=== PATIENT | male | born 1960 | race Caucasian/White ===

== ENCOUNTER 2016-02-21 19:16 | Emergency (ER) | payer OTHER ==
[2016-02-21 20:58] VITALS: BP 133/76
[2016-02-21] MEDS ORDERED: Azithromycin TAB* 250 MG PO ONE (21:24)
--- NOTE | 2016-02-21 21:43 | UC ---
Respiratory Complaint HPI - HPI Summary HPI Summary: worsening cough over the past 2-3 weeks - History of Current Complaint Chief Complaint: UCGeneralIllness Stated Complaint: COUGH, CHEST CONGESTION Time Seen by Provider: 02/21/16 21:10 Hx Obtained From: Patient Onset/Duration: Gradual Onset, Lasting Weeks - 3, Still Present Timing: Constant Pain Intensity: 0 Pain Scale Used: 0-10 Numeric Character: Cough: Nonproductive Aggravating Factors: Nothing Alleviating Factors: Nothing Associated Signs And Symptoms: Positive: Pleuritic Chest Pain, URI - Allergies/Home Medications Allergies/Adverse Reactions: Allergies Allergy/AdvReac Type Severity Reaction Status Date / Time No Known Allergies Allergy Verified 02/21/16 20:50 Home Medications: Home Medications Albuterol HFA INHALER* [Ventolin HFA Inhaler*] 02/21/16 [History] Fluticasone Furoate (Inhalatio [Arnuity Ellipta] 1 puff 02/21/16 [History] PMH/Surg Hx/FS Hx/Imm Hx Previously Healthy: No Endocrine History Of: Denies: Diabetes Cardiovascular History Of: Reports: Hypertension Denies: Myocardial Infarction Respiratory History Of: Reports: Asthma Denies: COPD - Surgical History Surgical History: Yes Surgery Procedure, Year, and Place: Cardiac cath. Left knee - Family History Known Family History: Positive: None Family History: denies cardio vascular events in lineage - Social History Occupation: Employed Full-time Lives: With Family Alcohol Use: Occasionally Alcohol Amount: one beer daily Substance Use Type: None Smoking Status (MU): Never Smoked Tobacco Have You Smoked in the Last Year: No Review of Systems Constitutional: Negative Skin: Negative Eyes: Negative ENT: Negative Respiratory: Cough Cardiovascular: Negative Gastrointestinal: Negative Genitourinary: Negative Motor: Negative Neurovascular: Negative Musculoskeletal: Negative Neurological: Negative Psychological: Negative All Other Systems Reviewed And Are Negative: Yes Physical Exam Triage Information Reviewed: Yes Appearance: Well-Appearing, No Pain Distress, Well-Nourished Vital Signs: Initial Vital Signs Temp 98 F 02/21/16 20:53 Pulse 63 02/21/16 20:53 Resp 18 02/21/16 20:53 BP 133/76 02/21/16 20:53 Pulse Ox 98 02/21/16 20:53 Vital Signs Reviewed: Yes Eye Exam: Normal Eyes: Positive: Conjunctiva Clear ENT Exam: Normal ENT: Positive: Normal ENT inspection, Hearing grossly normal, Pharynx normal, TMs normal. Negative: Nasal congestion, Nasal drainage, Tonsillar swelling, Tonsillar exudate, Trismus, Muffled/hoarse voice Dental Exam: Normal Neck exam: Normal Neck: Positive: Supple, Nontender, No Lymphadenopathy Respiratory Exam: Normal Respiratory: Positive: Chest non-tender, Lungs clear, Normal breath sounds, No respiratory distress, No accessory muscle use Cardiovascular Exam: Normal Cardiovascular: Positive: RRR, No Murmur, Pulses Normal, Brisk Capillary Refill Musculoskeletal Exam: Normal Musculoskeletal: Positive: Strength Intact, ROM Intact, No Edema Neurological Exam: Normal Neurological: Positive: Alert, Muscle Tone Normal Psychological Exam: Normal Psychological: Positive: Normal Response To Family Skin Exam: Normal UC Diagnostic Evaluation - Laboratory O2 Sat by Pulse Oximetry: 98 Respiratory Course/Dx - Course Course Of Treatment: zithromax, albuterol, increase fluids, tylenol/ibuprofen for discomfort follow with pcp re-check prn - Differential Dx/Diagnosis Differential Diagnosis/HQI/PQRI: Asthma, Bronchitis, Influenza, Laryngitis, Pneumothorax Provider Diagnoses: Bronchitis with Bronchospastic cough Discharge - Discharge Plan Condition: Stable Disposition: HOME Prescriptions: Azithromycin TAB* [Zithromax TAB (Z-ZIA) 250 mg #6 tabs] 250 mg PO DAILY #4 tab Patient Education Materials: How to Use a Metered-Dose Inhaler (ED), Acute Bronchitis (ED), Bronchospasm (ED) Referrals: Henok Gaston MD [Primary Care Provider] - If Needed
== END 2016-02-21 21:32 | disposition home or self-care (01) ==
LOC: UCEAST 19:16
DX: J20.9 Acute bronchitis, unspecified (principal)
CPT/HCPCS: 99212; A9270-GY; G0463

== ENCOUNTER 2016-10-04 11:36 | Emergency (ER) | payer OTHER ==
[2016-10-04 11:47] VITALS: BP 121/76
--- NOTE | 2016-10-04 12:18 | UC ---
Nena Joseph Alfonso, scribed for Jett David MD on 10/04/16 at 1146 . Ear Complaint HPI - HPI Summary HPI Summary: This patient is a 55 year old M presenting to [facility] with a chief complaint of right ear pain since 4 days ago. He states I may have swimmers ear. The CC is described as an aching pain. The patient rates the pain 2/10 in severity. Symptoms alleviated by nothing. Patient reports right ear swelling, right ear hearing loss, and sore throat. Patient denies ear drainage, ear ringing, and rhinorrhea. He was swimming 10 days ago. PMHx of HTN and HLD. Patients medications reviewed this visit. - History of Current Complaint Chief Complaint: UCEar Stated Complaint: PLUGGED EAR Hx Obtained From: Patient Onset/Duration: Sudden Onset, Lasting Days - 4, Still Present Severity Initially: Mild Severity Currently: Mild Pain Intensity: 2 Pain Scale Used: 0-10 Numeric Alleviating Factors: Nothing Associated Signs/Symptoms: Positive: Hearing Loss - right, Swelling @ - right ear. Negative: Discharge - Allergies/Home Medications Allergies/Adverse Reactions: Allergies Allergy/AdvReac Type Severity Reaction Status Date / Time No Known Allergies Allergy Verified 02/21/16 20:50 PMH/Surg Hx/FS Hx/Imm Hx Endocrine History: Dyslipidemia Cardiovascular History: Hypertension - Surgical History Surgical History: Yes Surgery Procedure, Year, and Place: Cardiac cath. Left knee - Family History Known Family History: Negative: Cardiac Disease Family History: denies cardio vascular events in lineage - Social History Alcohol Use: Occasionally Alcohol Amount: one beer daily Substance Use Type: None Smoking Status (MU): Never Smoked Tobacco Have You Smoked in the Last Year: No Review of Systems Constitutional: Other - Negative fever ENT: Other - Right ear pain, right ear swelling, right ear hearing loss, and sore throat; negative ear drainage, ear ringing, and rhinorrhea. All Other Systems Reviewed And Are Negative: Yes Physical Exam Triage Information Reviewed: Yes Vital Signs: Initial Vital Signs Temp 97.6 F 10/04/16 11:37 Pulse 117 10/04/16 11:37 Resp 18 10/04/16 11:37 Pulse Ox 100 10/04/16 11:37 Vital Signs Reviewed: Yes - Additional Comments The patient is well-nourished in no acute distress and in no acute pain. The skin is warm and dry and skin color reflects adequate perfusion. HEENT: The head is normocephalic and atraumatic. The pupils are equal and reactive. The conjunctivae are clear and without drainage. Nares are patent and without drainage. Mouth reveals moist mucous membranes and the throat is without erythema and exudate. No rhinorrhea. Left ear has cerumen. TM is partially visualized and appears to not be erythematous. Right ear has minimal to no wax. Rolan swelling. Debris in ear canal. TM is visualized and is not erythematous. Swelling over the TMJ area. Right ear is not hot or erythematous. No mastoid tenderness. Neck is supple with full range of motion and non-tender. There are no carotid bruits. There is no neck vein distension. Respiratory: Chest is non-tender. Lungs are clear to auscultation and breath sounds are symmetrical and equal. Cardiovascular: Heart is regular rate and rhythm. There is no murmur or rub auscultated. Pulses are symmetrical and equal. Abdomen: The abdomen is soft and non-tender. Musculoskeletal: There is no back pain noted. Extremities are non-tender with full range of motion. There is good capillary refill. There is no peripheral edema or calf tenderness elicited. Neurological: Patient is alert and oriented to person, place and time. The patient has symmetrical motor strength in all four extremities. Cranial nerves are grossly intact. Psychiatric: The patient has an appropriate affect. Ear Complaint Course/Dx - Course Course Of Treatment: This patient is a 55 year old M presenting to [facility] with a chief complaint of right ear pain since 4 days ago. He states I may have swimmers ear. The CC is described as an aching pain. The patient rates the pain 2/10 in severity. Symptoms alleviated by nothing. Patient reports right ear swelling, right ear hearing loss, and sore throat. Patient denies ear drainage, ear ringing, and rhinorrhea. He was swimming 10 days ago. PMHx of HTN and HLD. Patients medications reviewed this visit. Patient will be discharged with prescription and follow up from PCP and ENT. The patient is agreeable with this plan. - Differential Dx/Diagnosis Differential Diagnosis/HQI/PQRI: Cerumen Impaction, Mastoiditis, Otitis Externa , Otitis Media Provider Diagnoses: Right otitis externa Discharge - Discharge Plan Condition: Stable Disposition: HOME Prescriptions: Ciproflox/Dexameth OTIC.SUSP* [Ciprodex OTIC.SUSP*] 4 drop .SEE ORDER BID #1 [id number] Patient Education Materials: Otitis Externa (ED) Referrals: Henok Gaston MD [Primary Care Provider] - 1 Week Chet Rendon MD [Medical Doctor] - 1 Week The documentation as recorded by the Nena shankar Alfonso accurately reflects the service I personally performed and the decisions made by me, Jett David MD.
== END 2016-10-04 12:05 | disposition home or self-care (01) ==
LOC: UCEAST 11:36
DX: H60.91 Unspecified otitis externa, right ear (principal); E78.5 Hyperlipidemia, unspecified; I10 Essential (primary) hypertension
CPT/HCPCS: 99212; G0463